=== PATIENT | male | born 1955 | race Two or more races ===

== ENCOUNTER 2019-05-19 21:20 | Emergency (ER) | payer MEDICAID, OTHER ==
[~2019-05-19] VITALS: Ht 188 cm; Wt 104.3 kg
--- NOTE | 2019-05-19 22:11 | NUR ---
PATIENT STATES "I DO NOT WANT BLOOD WORK, I JUST WANT TO REFILL MY PRESCRIPTIONS".
[2019-05-19 23:20] LABS: APPEARANCE,URINE Clear (CLEAR); BILIRUBIN,URINE Negative (NEGATIVE); BLOOD, URINE Negative Ery/uL (NEGATIVE); COLOR,URINE Yellow (YELLOW); KETONES,URINE Negative (NEGATIVE); LEUKOCYTE ESTERASE ,URINE Negative (NEGATIVE); NITRITE, URINE Negative (NEGATIVE); PROTEIN,URINE Negative (NEGATIVE); UGLUCOSE Negative (NEGATIVE); UROBILINOGEN,URINE 0.2 EU/dL (0.2)
[2019-05-19 23:22] LABS: BASOPHILS % (AUTO) 0.3 % (0.0-2.0); EOSINOPHILS % (AUTO) 1.1 % (0.0-6.0); HEMATOCRIT 52 % (39-51); HEMOGLOBIN 17.7 g/dL (13.5-17.5); LYMPHOCYTES # (AUTO) 0.8 /CMM (0.8-4.8); LYMPHOCYTES % (AUTO) 7.7 % (20.0-44.0); MEAN CORPUSCULAR HGB CONC 34 g/dl (31.0-36.0); MEAN CORPUSCULAR VOLUME 95 fL (80-96); MONOCYTES # (AUTO) 0.9 /CMM (0.1-1.30); MONOCYTES % (AUTO) 8.5 % (2.0-12.0); NEUTROPHILS # (AUTO) 8.6 /CMM (1.8-8.9); NEUTROPHILS % (AUTO) 82.4 % (43.0-81.0); PLATELET COUNT (AUTO) 179 /CMM (150-450); RED BLOOD CELL COUNT(AUTO) 5.46 MIL/uL (4.5-6.0); WHITE BLOOD COUNT (AUTO) 10.5 K/uL (4.3-11.0)
[2019-05-19 23:37] LABS: CALCIUM, SERUM 9.1 mg/dL (8.5-10.1); POTASSIUM 3.9 mmol/L (3.5-5.1)
[2019-05-19 23:43] LABS: ALBUMIN 3.7 g/dL (3.4-5.0); BILIRUBIN,DIRECT 0.2 mg/dL (0.0-0.2); BILIRUBIN,TOTAL 0.7 mg/dL (0.2-1.0); TOTAL PROTEIN, SERUM 7.1 g/dL (6.4-8.2)
[2019-05-20] MEDS ORDERED: CIPROFLOXACIN HCL 500 MG TABLET ONE (00:58)
[2019-05-20] MEDS ORDERED: METRONIDAZOLE 500 MG TABLET ONE (00:58)
--- NOTE | 2019-05-20 01:03 | NUR ---
Patient discharged to home in stable condition. Written and verbal after care instructions given. Patient verbalizes understanding of instruction. ambulatory with a steady gait noted. pt aaox4 no acute distress noted, resp even and unlabored.
[2019-05-20 01:04] VITALS: BP 152/79
[2019-05-20] MEDS ORDERED: METRONIDAZOLE 500 MG TABLET PO ONE (01:30)
[2019-05-20] MEDS ORDERED: CIPROFLOXACIN HCL 250 MG TABLET PO ONE (01:30)
== END 2019-05-20 01:05 | disposition home or self-care (01) ==
LOC: ER 21:23
DX: K57.32 Diverticulitis of large intestine without perforation or abscess without bleeding (principal); Z88.2 Allergy status to sulfonamides
CPT/HCPCS: 36415; 80048-TC; 80076-TC; 81000-TC; 83690-TC; 85025-TC

== ENCOUNTER 2019-11-08 16:06 | Inpatient (IN) | payer MEDICAID, SELFPAY ==
[~2019-11-08] VITALS: Ht 188 cm; Wt 102.5 kg
[2019-11-08] MEDS ORDERED: IV NS 0.9% 500 ML IV ONE (16:30)
[2019-11-08] MEDS ORDERED: ACETAMINOPHEN ES 500 MG TABLET PO ONE (16:30)
[2019-11-08 16:48] LABS: BASOPHILS % (AUTO) 0.4 % (0.0-2.0); EOSINOPHILS % (AUTO) 0.5 % (0.0-6.0); HEMATOCRIT 49 % (39-51); HEMOGLOBIN 16.4 g/dL (13.5-17.5); LYMPHOCYTES # (AUTO) 0.8 /CMM (0.8-4.8); LYMPHOCYTES % (AUTO) 11.1 % (20.0-44.0); MEAN CORPUSCULAR HGB CONC 34 g/dl (31.0-36.0); MEAN CORPUSCULAR VOLUME 96 fL (80-96); MONOCYTES # (AUTO) 0.8 /CMM (0.1-1.30); MONOCYTES % (AUTO) 10.2 % (2.0-12.0); NEUTROPHILS # (AUTO) 5.8 /CMM (1.8-8.9); NEUTROPHILS % (AUTO) 77.8 % (43.0-81.0); PLATELET COUNT (AUTO) 207 /CMM (150-450); RED BLOOD CELL COUNT(AUTO) 5.05 MIL/uL (4.5-6.0); WHITE BLOOD COUNT (AUTO) 7.5 K/uL (4.3-11.0)
[2019-11-08] MEDS ORDERED: ACETAMINOPHEN ES 500 MG TABLET ONE (16:48)
[2019-11-08 16:55] LABS: CALCIUM, SERUM 9.3 mg/dL (8.5-10.1); CREATININE 1.2 mg/dL (0.6-1.3); POTASSIUM 3.6 mmol/L (3.5-5.1)
[2019-11-08 17:00] LABS: ALBUMIN 3.6 g/dL (3.4-5.0); BILIRUBIN,TOTAL 1.1 mg/dL (0.2-1.0)
--- NOTE | 2019-11-08 17:00 | NUR ---
"Started having fever last monday COVID PCR test negative fever persist have GOMEZ, bodyaches". PT AAOX4, VSS. RR EVEN & UNLABORED. DENIES CP, SOB, DIZZINESS, N/V AT THIS TIME. PT SEEN & EVAL'D BY DR. CARDOSO. MEDICATED ORDERED, PT RENU WELL. WILL CONT TO MONITOR.
[2019-11-08] MEDS ORDERED: SIMV-46 PO (18:52)
[2019-11-08] MEDS ORDERED: WARF7.5T49 PO (18:52)
--- NOTE | 2019-11-08 19:30 | NUR ---
PT RESTING, DENIES CP, SOB, DIZZINESS, N/V, WEAKNESS AT THIS TIME. WILL CONT TO MONITOR.
[2019-11-08] MEDS ORDERED: IV NS 0.9% 250 ML IV ONE (19:49)
[2019-11-08] MEDS ORDERED: IOHEXOL-350 100 ML VIAL IV ONE (19:49)
[2019-11-08] MEDS ORDERED: CT SWABBABLE VALVE TRANS SET 1 EA INFUS.SET MC ONE (19:49)
[2019-11-08] MEDS ORDERED: IV NS 0.9% 500 ML BAG IV ONE (20:00)
[2019-11-08] MEDS ORDERED: ONDANSETRON HCL/PF 4 MG/2 ML VIAL IVP PRN (20:30)
[2019-11-08] MEDS ORDERED: MORPHINE SULFATE INJ 2 MG/ML DISP.SYRIN IV PRN (20:30)
[2019-11-08] MEDS ORDERED: MAGNESIUM HYDROXIDE 30 ML UDC PO PRN (20:30)
[2019-11-08] MEDS ORDERED: MAG HYDROX/AL HYDROX/SIMETH 30 ML UDC PO PRN (20:30)
[2019-11-08] MEDS ORDERED: HYDROCODONE/APAP 5/325MG TABLET PO PRN (20:30)
--- NOTE | 2019-11-08 21:26 | NUR ---
TELE 321-4
--- NOTE | 2019-11-08 22:44 | NUR ---
REPORT GIVN TO HAZEL TOBIAS FOR MELIZA.
[2019-11-08 23:20] VITALS: BP 156/96
[2019-11-09] MEDS: IV 1/2NS 1000 ML 1,000 ML IV PRN ×2 (00:03→20:50)
--- NOTE | 2019-11-09 00:05 | NUR ---
MS/TELE/RN RECEIVED PATIENT FROM [facility] VIA [facility] AT AROUND 2320. PATIENT WAS AWAKE, ALERT, ORIENTED, COMFORTABLE, NO C/O PAIN, NO DISTRESS NOTED, ADMISSION DONE PER PROTOCOL. PER PATIENT HE HAS NO SKIN PROBLEM AND REFUSED SKIN ASSESSMENT. PLAN OF CARE DISCUSSED, VERBALIZED UNDERSTANDING AND AGREEMENT, TAUGHT THE USE OF CALL LIGHT AND PLACED IT AT BEDSIDE WITHIN REACH. WILL MONITOR.
[2019-11-09 00:07] LABS: BILIRUBIN,DIRECT 0.3 mg/dL (0.0-0.2)
--- NOTE | 2019-11-09 02:16 | NUR ---
MS/TELE/RN PATIENT IS SLEEPING AT THIS TIME, APPEAR COMFORTABLE, NO SIGNS OF DISTRESS NOTED, CALL LIGHT IN REACH, WILL CONTINUE TO MONITOR.
[2019-11-09 04:00] VITALS: BP 150/94
[2019-11-09] MEDS ORDERED: ACETAMINOPHEN ES 500 MG TABLET PO ONE (04:00)
--- NOTE | 2019-11-09 05:07 | NUR ---
MS/TELE/RN TEMP 102.7, COOLING MEASURES INITIATED, GUERLINE UNGER NP, MADE AWARE, RECEIVED ORDERS FOR BLOOD CULTURE X 2 AND TYLENOL 1GM PO X1 AND URINE CULTURE, ORDERS WERE CARRIED OUT, URINE WAS COLLECTED, MED WAS GIVEN. BARREL RIFLER BUTTON MADE AWARE OF THE TEMP AND PENDING COVID 19 PCR TEST PENDING RESULT, CHARGE NURSE MADE AWARE. CHARGE NURSE SPOKE TO BARREL RIFLER BUTTON. WILL KEEP THE PATIENT IN [facility].
[2019-11-09 07:39] LABS: BASOPHILS % (AUTO) 0.4 % (0.0-2.0); EOSINOPHILS % (AUTO) 0.2 % (0.0-6.0); HEMATOCRIT 46 % (39-51); HEMOGLOBIN 15.6 g/dL (13.5-17.5); LYMPHOCYTES % (AUTO) 15.3 % (20.0-44.0); MEAN CORPUSCULAR HGB CONC 34 g/dl (31.0-36.0); MEAN CORPUSCULAR VOLUME 96 fL (80-96); MONOCYTES # (AUTO) 0.8 /CMM (0.1-1.30); MONOCYTES % (AUTO) 11.7 % (2.0-12.0); NEUTROPHILS # (AUTO) 4.8 /CMM (1.8-8.9); NEUTROPHILS % (AUTO) 72.4 % (43.0-81.0); PLATELET COUNT (AUTO) 187 /CMM (150-450); RED BLOOD CELL COUNT(AUTO) 4.79 MIL/uL (4.5-6.0); WHITE BLOOD COUNT (AUTO) 6.6 K/uL (4.3-11.0)
--- NOTE | 2019-11-09 07:51 | NUR ---
PATIENT REFUSING MRI SINCE YESTERDAY.NURSE IS AWARE.
[2019-11-09 08:00] VITALS: BP 124/75
[2019-11-09 08:03] LABS: ALBUMIN 3.4 g/dL (3.4-5.0); BILIRUBIN,TOTAL 1.1 mg/dL (0.2-1.0); CALCIUM, SERUM 8.8 mg/dL (8.5-10.1); MAGNESIUM 2.1 mg/dL (1.8-2.4); PHOSPHORUS 2.8 mg/dL (2.5-4.9); POTASSIUM 3.6 mmol/L (3.5-5.1)
[2019-11-09 08:12] LABS: THYROID STIMULATING HORMONE 3.063 uIU/mL (0.358-3.74)
--- NOTE | 2019-11-09 09:22 | NUR ---
FISH TRAPPER OPENING NOTES Patient received alert and oriented x4. Respiration is even and easy with no shortness of breath. Temperature taken at 0700, with result of 99.0. Will continue to monitor. Independent with bowel and bladder habits. No complain of pain or discomfort at this time. Will keep safe and comfortable. IV site on Left AC, intact and infusing well. Addendum: 11/09/19 at 0935 by CAMDEN ENRIQUEZ RN Above documentation obtained during report [id number]
[2019-11-09] MEDS: ACETAMINOPHEN 325 MG TABLET PO PRN ×2 (10:52→16:35)
[2019-11-09 11:31] LABS: APPEARANCE,URINE CLEAR (CLEAR); BILIRUBIN,URINE NEGATIVE (NEGATIVE); BLOOD, URINE NEGATIVE Ery/uL (NEGATIVE); COLOR,URINE YELLOW (YELLOW); KETONES,URINE NEGATIVE (NEGATIVE); LEUKOCYTE ESTERASE ,URINE NEGATIVE (NEGATIVE); NITRITE, URINE NEGATIVE (NEGATIVE); PROTEIN,URINE NEGATIVE (NEGATIVE); UGLUCOSE NEGATIVE (NEGATIVE)
[2019-11-09 11:36] LABS: FERRITIN 546 ng/mL (8-388)
[2019-11-09 11:51] LABS: C-REACTIVE PROTEIN < 0.2 mg/dL (0.0-0.9)
--- NOTE | 2019-11-09 13:13 | NUR ---
CAPSULE FILLER NOTES Pt remains alert and verbally responsive. Pt complained of generalized warm sensation. Temp taken with result of 100.6, Addendum: 11/09/19 at 1317 by CAMDEN ENRIQUEZ RN Offered cooling measures. Pt declined to have ice packs, but was able to apply cool towels. Will continue to monitor for the rest of shift.
--- NOTE | 2019-11-09 15:56 | NUR ---
LAUNDRY AGENT NOTES MD with orders to continue coumadin 7.5 mg qd at 5pm. Pt made aware and stated he takes his coumadin daily in the AM. MD made aware and agreed.
[2019-11-09 16:00] VITALS: BP 122/62
[2019-11-09] MEDS ORDERED: WARFARIN SODIUM 2.5 MG TABLET PO SCH (17:00)
[2019-11-09] MEDS: SIMVASTATIN 20 MG TABLET PO SCH (18:06)
--- NOTE | 2019-11-09 18:17 | NUR ---
RN MED/SURG CLOSING NOTES Pt remains alert / oriented x 4. Respiration is even and easy with no shortness of breath. With episodes of fever during the shift. Tylenol 650mg given at 1630. Cooling measures provided. Declined to have ice packs in place, but ok to have cool towels. pt in stable condition at this time. Addendum: 11/09/19 at 183 by CAMDEN ENRIQUEZ RN Temp. taken at 183, with result of 99.6
[2019-11-09 20:00] VITALS: BP 133/79
--- NOTE | 2019-11-09 20:38 | NUR ---
MS/TELE/RN ON INITIAL ROUNDING AT 1930, RECEIVED PATIENT ON BED AWAKE, ALERT, ORIENTED, COMFORTABLE, NO C/O PAIN, NO DISTRESS NOTED, CALL LIGHT IN REACH. WILL MONITOR.
[2019-11-10] MEDS: ACETAMINOPHEN 325 MG TABLET PO PRN ×2 (00:27→11:18)
--- NOTE | 2019-11-10 00:34 | NUR ---
MS/TELE/RN TEMP 100.9. TYLENOL 650 MG PO WAS GIVEN ORDERED. PATIENT REFUSED COOLING MEASURES. WILL CONTINUE TO MONITOR.
--- NOTE | 2019-11-10 05:02 | NUR ---
MS/TELE/RN TEMP 98.9 AT THIS TIME, WILL CONTINUE TO MONITOR.
--- NOTE | 2019-11-10 06:10 | NUR ---
MS/TELE/RN PATIENT IS SLEEPING AT THIS TIME, APPEAR COMFORTABLE, NO SIGNS OF DISTRESS NOTED, CALL LIGHT IN REACH, ALL NEEDS ATTENDED AT THIS TIME, WILL CONTINUE TO MONITOR.
[2019-11-10 06:36] LABS: BASOPHILS # (AUTO) 0.1 /CMM (0.0-0.2); BASOPHILS % (AUTO) 0.8 % (0.0-2.0); EOSINOPHILS % (AUTO) 0.5 % (0.0-6.0); HEMATOCRIT 45 % (39-51); HEMOGLOBIN 15.3 g/dL (13.5-17.5); LYMPHOCYTES # (AUTO) 1.2 /CMM (0.8-4.8); LYMPHOCYTES % (AUTO) 17.7 % (20.0-44.0); MEAN CORPUSCULAR HGB CONC 34 g/dl (31.0-36.0); MEAN CORPUSCULAR VOLUME 96 fL (80-96); MONOCYTES # (AUTO) 0.7 /CMM (0.1-1.30); MONOCYTES % (AUTO) 9.5 % (2.0-12.0); NEUTROPHILS # (AUTO) 4.9 /CMM (1.8-8.9); NEUTROPHILS % (AUTO) 71.5 % (43.0-81.0); PLATELET COUNT (AUTO) 185 /CMM (150-450); RED BLOOD CELL COUNT(AUTO) 4.69 MIL/uL (4.5-6.0); WHITE BLOOD COUNT (AUTO) 6.8 K/uL (4.3-11.0)
[2019-11-10 07:19] LABS: CALCIUM, SERUM 8.9 mg/dL (8.5-10.1); CREATININE 1.2 mg/dL (0.6-1.3); MAGNESIUM 2.1 mg/dL (1.8-2.4); PHOSPHORUS 3.2 mg/dL (2.5-4.9); POTASSIUM 4.1 mmol/L (3.5-5.1)
--- NOTE | 2019-11-10 07:27 | NUR ---
MS RN NOTES RECEIVED PT IN BED, AWAKE, A/O X4. PT TOLERATING RA, WITH NO ACUTE RESPIRATORY DISTRESS NOTED. PT DENIES ANY PAIN AT THIS TIME. PT CONCERNED ABOUT THE CAUSE OF FLUCTUATING FEVER, AND WANTED TO KNOW ABOUT ANTIBIOTICS-RN TO F/U WITH HOSPITALIST. IVF 1/2 NS AT 75ML/HR TO LACG20, INTACT AND FLUID INFUSING WELL. PT KEPT COMFORTABLE. CALL LIGHT KEPT WITHIN REACH. PT'S BED IN LOWEST, LOCKED POSITION WITH SR X3. WILL CONTINUE PLAN OF CARE.
[2019-11-10 08:00] VITALS: BP 147/90
[2019-11-10] MEDS ORDERED: WARFARIN SODIUM 2.5 MG TABLET PO SCH ×2 (09:00→17:00)
--- NOTE | 2019-11-10 09:38 | NUR ---
MS RN NOTES VERIFIED PHARMACY, SPOKE TO MAURO. PT NEEDS PT/INR FOR PT EVERYDAY BEFORE GIVING COUMADIN- WILL NOTIFY HOSPITALIST/LW. ALSO, PER PT HE ALWAYS TAKES COUMADIN EVERY MORNING FOR 20 YEARS AT 7AM AND IN AN EMPTY STOMACH. INFORMED PHARMACY. WILL CONTINUE TO MONITOR.
[2019-11-10] MEDS: IV 1/2NS 1000 ML 1,000 ML IV PRN (10:28)
[2019-11-10] MEDS: WARFARIN SODIUM 2.5 MG TABLET PO SCH (11:12)
[2019-11-10 16:00] VITALS: BP 140/89
[2019-11-10] MEDS: SIMVASTATIN 20 MG TABLET PO SCH (17:28)
--- NOTE | 2019-11-10 19:14 | NUR ---
MS RN NOTES PT REMAINS IN BED, AWAKE, A/O X4. PT TOLERATING RA, WITH NO ACUTE RESPIRATORY DISTRESS NOTED. PT DENIES ANY PAIN AT THIS TIME. IVF 1/2 NS AT 75ML/HR TO L HAND G18, INTACT AND FLUID INFUSING WELL. PT KEPT COMFORTABLE. ALL NEEDS AND CARE ATTENDED. CALL LIGHT KEPT WITHIN REACH. PT'S BED IN LOWEST, LOCKED POSITION WITH SR X3. WILL ENDORSE TO INCOMING NIGHT NURSE FOR MELIZA.
--- NOTE | 2019-11-10 19:46 | NUR ---
MS RN OPENING NOTES PATIENT RECEIVED RESTING IN BED, A/O X 4. STABLE ON RA WITH BREATHING EVEN AND UNLABORED, NO SOB NOTED. NO SIGNS OF ACUTE DISTRESS. NO COMPLAINTS OF PAIN OR DISCOMFORT AT THE MOMENT. IV LOCATED ON L HAND #20 RUNNING NS @ 75 ML/HR. SAFETY PRECAUTIONS IN PLACE WITH BED IN LOWEST POSITION, CALL LIGHT WITHIN REACH, BREAKS ON, SIDE RAILS UP. WILL CONTINUE TO MONITOR THROUGHOUT THE NIGHT .
[2019-11-10 20:00] VITALS: BP 140/89
[2019-11-11] MEDS: ACETAMINOPHEN 325 MG TABLET PO PRN (02:32)
--- NOTE | 2019-11-11 02:38 | NUR ---
RN NOTES PATIENT TEMPERATURE 99.7, PRN TYLENOL 650 MG ADMINISTERED.
--- NOTE | 2019-11-11 05:50 | NUR ---
MS RN NOTES PATIENT COMPLAINING OF IV SITE FOR TENDERNESS. IV SITE REMOVED. OFFERED TO PUT NEW IV SITE BUT PATIENT REFUSED. EDUCATED PURPOSE OF THE IV AND FOR FLUIDS, BUT PATIENT STILL REFUSED HE STATED "HE DRINKS ENOUGH WATER". WILL BE OPEN TO IV WHEN IV MEDICATIONS ARE NEEDED.
--- NOTE | 2019-11-11 06:47 | NUR ---
MS RN CLOSING NOTES PATIENT RESTING IN BED, A/O X 4. STABLE ON RA WITH BREATHING EVEN AND UNLABORED, NO SOB NOTED. NO SIGNS OF ACUTE DISTRESS. NO COMPLAINTS OF PAIN OR DISCOMFORT AT THE MOMENT. PATIENT REFUSED IV ACCESS AT THE MOMENT. SAFETY PRECAUTIONS IN PLACE WITH BED IN LOWEST POSITION, CALL LIGHT WITHIN REACH, BREAKS ON, SIDE RAILS UP. ALL NEEDS ATTENDED TO. WILL ENDORSE TO ONCOMING SHIFT ABOUT MELIZA.
[2019-11-11 07:09] LABS: HEMATOCRIT 46 % (39-51); HEMOGLOBIN 15.8 g/dL (13.5-17.5); MEAN CORPUSCULAR HGB CONC 34 g/dl (31.0-36.0); MEAN CORPUSCULAR VOLUME 96 fL (80-96); PLATELET COUNT (AUTO) 190 /CMM (150-450); RED BLOOD CELL COUNT(AUTO) 4.79 MIL/uL (4.5-6.0); WHITE BLOOD COUNT (AUTO) 5.9 K/uL (4.3-11.0)
[2019-11-11 07:37] LABS: NEUTROPHILS % (AUTO) 71.4 % (43.0-81.0)
[2019-11-11 07:38] LABS: MONOCYTES % (AUTO) 11.9 % (2.0-12.0)
[2019-11-11 07:39] LABS: BASOPHILS % (AUTO) 0.1 % (0.0-2.0); EOSINOPHILS % (AUTO) 0.6 % (0.0-6.0)
[2019-11-11 07:40] LABS: LYMPHOCYTES # (AUTO) 0.9 /CMM (0.8-4.8); NEUTROPHILS # (AUTO) 4.2 /CMM (1.8-8.9)
[2019-11-11 07:41] LABS: CALCIUM, SERUM 9.3 mg/dL (8.5-10.1); CREATININE 1.1 mg/dL (0.6-1.3); MAGNESIUM 2.1 mg/dL (1.8-2.4); MONOCYTES # (AUTO) 0.7 /CMM (0.1-1.30); PHOSPHORUS 3.2 mg/dL (2.5-4.9); POTASSIUM 3.9 mmol/L (3.5-5.1)
[2019-11-11 08:00] VITALS: BP 144/89
--- NOTE | 2019-11-11 08:00 | NUR ---
m/s regional engineer: initial assessment received pt in bed awake, a/ox4. no c/o pain or any discomfort. afebrile. no distress noted. still refusing iv insertion at this time. awaiting for md. will continue to monitor.
[2019-11-11] MEDS: WARFARIN SODIUM 2.5 MG TABLET PO SCH (08:43)
--- NOTE | 2019-11-11 09:20 | NUR ---
m/s marketing and outreach coordinator: notes received order from dominic woo ([facility]) to keep pt npo. pt made aware, updated plan of care and answered all questions. grill chef to see pt today and pt made aware. pt agree for iv insertion only if needed as stated. Addendum: 11/11/19 at 0927 by ORESTES PACHECO SERVICE CONTROL OPERATOR pt already had breakfast this morning. snacks and juices removed, pt verbalized understanding.
--- NOTE | 2019-11-11 10:50 | NUR ---
m/s nuclear physicist: md visit seen and examined by dominic woo ([facility]) with verbal order to hold coumadin and start lovenox per pharmacy dose tomorrow. orders read back and carried out. also pt agree for iv insertion.
[2019-11-11] MEDS: IV D5/0.45 NACL 1,000 ML IV PRN ×2 (11:56→22:10)
[2019-11-11] MEDS ORDERED: ENOXAPARIN SODIUM 100 MG/ML DISP.SYRIN SQ SCH (12:00)
--- NOTE | 2019-11-11 12:00 | NUR ---
m/s wet process technician: notes resting comfortable in bed. remains npo. iv fluids infusing well. no distress noted. will continue to monitor.
[2019-11-11 13:07] LABS: HIV SCRN 4G wRFX Non Reactive (Non Reactive)
--- NOTE | 2019-11-11 15:00 | NUR ---
m/s rehab spec: notes pt remains npo, iv fluids infusing well. no distress noted. will continue to monitor.
[2019-11-11] MEDS ORDERED: ACETAMINOPHEN 650 MG/SUPP.RECT RC PRN (17:00)
--- NOTE | 2019-11-11 17:00 | NUR ---
m/s restaurant shift leader: notes resting comfortable. no distress noted. instructed to call for assistance.
[2019-11-11] MEDS: SIMVASTATIN 20 MG TABLET PO SCH (17:37)
[2019-11-11 17:52] VITALS: BP 138/92
--- NOTE | 2019-11-11 19:00 | NUR ---
m/s track subway repair supervisor: notes report given to aidan (daxa) for continuity of care.
--- NOTE | 2019-11-11 19:05 | NUR ---
MS/RN OPENING NOTES: PATIENT RECEIVED RESTING IN BED, A/O X 4. VERBALLY RESPONSIVE AND ABLE TO MAKE NEEDS KNOWN. STABLE ON RA WITH BREATHING EVEN AND UNLABORED, NO SOB NOTED. NO SIGNS OF ACUTE DISTRESS. NO COMPLAINTS OF PAIN OR DISCOMFORT AT THE MOMENT. IV LOCATED ON L FA #20 RUNNING D5 1/2 NS @ 100 MLS/HR. SAFETY PRECAUTIONS IN PLACE WITH BED IN LOWEST POSITION, CALL LIGHT WITHIN REACH, BREAKS ON, SIDE RAILS UP. WILL CONTINUE TO MONITOR THROUGHOUT THE SHIFT.
[2019-11-11 20:00] VITALS: BP 128/88
[2019-11-11] MEDS: ENOXAPARIN SODIUM 100 MG/ML DISP.SYRIN SQ SCH (20:27)
--- NOTE | 2019-11-12 06:50 | NUR ---
MS/RN NOTES: LATEST TEMP IS 98.8, ORALLY. NO FEVER THROUGHOUT THE SHIFT.
[2019-11-12 07:24] LABS: BASOPHILS % (AUTO) 0.6 % (0.0-2.0); EOSINOPHILS % (AUTO) 1.2 % (0.0-6.0); HEMATOCRIT 45 % (39-51); HEMOGLOBIN 15.3 g/dL (13.5-17.5); LYMPHOCYTES % (AUTO) 23.2 % (20.0-44.0); MEAN CORPUSCULAR HGB CONC 34 g/dl (31.0-36.0); MEAN CORPUSCULAR VOLUME 95 fL (80-96); MONOCYTES # (AUTO) 0.6 /CMM (0.1-1.30); MONOCYTES % (AUTO) 14.4 % (2.0-12.0); NEUTROPHILS # (AUTO) 2.6 /CMM (1.8-8.9); NEUTROPHILS % (AUTO) 60.6 % (43.0-81.0); PLATELET COUNT (AUTO) 197 /CMM (150-450); RED BLOOD CELL COUNT(AUTO) 4.73 MIL/uL (4.5-6.0); WHITE BLOOD COUNT (AUTO) 4.3 K/uL (4.3-11.0)
--- NOTE | 2019-11-12 07:48 | NUR ---
MS/RN CLOSING NOTES: PATIENT REMAINS RESTING IN BED, A/O X 4. NO SIGNIFICANT CHANGES IN CONDITION. STABLE ON RA WITH BREATHING EVEN AND UNLABORED, NO SOB NOTED. NO SIGNS OF ACUTE DISTRESS. NO COMPLAINTS OF PAIN OR DISCOMFORT AT THE MOMENT. IV LOCATED ON L FA #20 RUNNING D5 1/2 NS @ 100 MLS/HR. SAFETY PRECAUTIONS IN PLACE WITH BED IN LOWEST POSITION, CALL LIGHT WITHIN REACH, BREAKS ON, SIDE RAILS UP. KEPT NPO THROUGHOUT THE SHIFT. ENDORSED TO HAZEL GARCIA FOR MELIZA.
[2019-11-12 08:00] VITALS: BP 131/80
--- NOTE | 2019-11-12 08:00 | NUR ---
MS RN NOTES PATIENT IN BED RESTING. ALERT, ORIENTED X3. NO SOB OR ACUTE DISTRESS NOTED. BED IN LOW LOCKED POSITION. PERIPHERAL IV INTACT PATENT. WILL CONTINUE TO MONITOR.
[2019-11-12 08:57] LABS: CREATININE 1.1 mg/dL (0.6-1.3); MAGNESIUM 2.1 mg/dL (1.8-2.4); PHOSPHORUS 3.2 mg/dL (2.5-4.9); POTASSIUM 3.9 mmol/L (3.5-5.1)
[2019-11-12] MEDS: ENOXAPARIN SODIUM 100 MG/ML DISP.SYRIN SQ SCH (09:11)
[2019-11-12] MEDS: IV D5/0.45 NACL 1,000 ML IV PRN ×2 (09:34→19:42)
--- NOTE | 2019-11-12 13:35 | NUR ---
MS RN NOTES PATIENT SEEN BY SATNAM BABB NP ORDERS TO START PATIENT ON CLEAR LIQUIDS DIET AND IF TOLERATING START REGULAR DIET. WILL CONTINUE TO MONITOR
[2019-11-12 16:00] VITALS: BP 133/80
[2019-11-12] MEDS ORDERED: WARFARIN SODIUM 5 MG TABLET PO SCH (17:00)
--- NOTE | 2019-11-12 17:23 | NUR ---
MS RN NOTES PER SATNAM FREIRE D/C LOVENOX AND CONTINUE COUMADIN HE WAS TAKING AT HOME.
[2019-11-12] MEDS: SIMVASTATIN 20 MG TABLET PO SCH (17:42)
--- NOTE | 2019-11-12 18:45 | NUR ---
MS RN NOTES PATIENT IN BED RESTING NO SOB OR ACUTE DISTRESS NOTED. PATIENT TOLERATED DIET. DENIES ANY PAIN OR DISCOMFORT. ALL DUE MEDICATIONS ADMINISTERED. ALL NEEDS MET. WILL ENDORSE CARE TO PM SHIFT.
[2019-11-12 20:00] VITALS: BP 125/75
--- NOTE | 2019-11-12 20:44 | NUR ---
MS/TELE/RN AT INITIAL ROUNDING AT 1930, PATIENT WAS LYING ON BED AWAKE, ALERT, ORIENTED, VERBALIZED THAT HE FEELS SO MUCH BETTER, NO C/O PAIN, NO DISTRESS NOTED, CALL LIGHT IN REACH.WITHIN REACH, WILL MONITOR.
--- NOTE | 2019-11-12 22:00 | NUR ---
MS/TELE/RN PATIENT IS SLEEPING, APPEAR COMFORTABLE, NO SIGNS OF DISTRESS NOTED, CALL LIGHT IN REACH. WILL CONTINUE TO MONITOR.
[2019-11-13] MEDS: IV D5/0.45 NACL 1,000 ML IV PRN (06:01)
--- NOTE | 2019-11-13 06:29 | NUR ---
MS/TELE/RN PATIENT IS AWAKE, COMFORTABLE NO SIGNS OF DISTRESS NOTED, CALL LIGHT IN REACH. REDDENED IV SITE NOTED, OFFERED TO CHANGE IV LINE, BUT REFUSED. ALL NEEDS ATTENDED AT THIS TIME, WILL CONTINUE TO MONITOR.
[2019-11-13 06:35] LABS: BASOPHILS % (AUTO) 0.1 % (0.0-2.0); EOSINOPHILS % (AUTO) 1.6 % (0.0-6.0); HEMATOCRIT 43 % (39-51); HEMOGLOBIN 14.6 g/dL (13.5-17.5); LYMPHOCYTES # (AUTO) 0.9 /CMM (0.8-4.8); LYMPHOCYTES % (AUTO) 21.9 % (20.0-44.0); MEAN CORPUSCULAR HGB CONC 35 g/dl (31.0-36.0); MEAN CORPUSCULAR VOLUME 95 fL (80-96); MONOCYTES # (AUTO) 0.6 /CMM (0.1-1.30); MONOCYTES % (AUTO) 14.9 % (2.0-12.0); NEUTROPHILS # (AUTO) 2.6 /CMM (1.8-8.9); NEUTROPHILS % (AUTO) 61.5 % (43.0-81.0); PLATELET COUNT (AUTO) 193 /CMM (150-450); RED BLOOD CELL COUNT(AUTO) 4.47 MIL/uL (4.5-6.0); WHITE BLOOD COUNT (AUTO) 4.2 K/uL (4.3-11.0)
[2019-11-13 06:45] LABS: CALCIUM, SERUM 8.8 mg/dL (8.5-10.1); CREATININE 0.9 mg/dL (0.6-1.3)
--- NOTE | 2019-11-13 07:18 | NUR ---
MS RN NOTES PATIENT IN BED ALERT ORIENTED X 4. NO ACUTE DISTRESS NOTED. BREATHING UNLABORED. NO SOB NOTED. DENIED PAIN AT THIS TIME. IV ACCESS PATENT AND INTACT, NO REDNESS, NO SWELLING NOTED. SAFETY MEASURES IN PLACE. CALL LIGHT WITHIN REACH. WILL CONTINUE TO MONITOR ACCORDINGLY.
[2019-11-13 08:00] VITALS: BP 144/91
--- NOTE | 2019-11-13 11:45 | NUR ---
MS RN NOTES PATIENT SEEN AND EVALUATED BY FLAT SORTER PROCESSOR SATNAM FREIRE WITH NEW ORDERS MADE, NOTED AND CARRIED OUT.
--- NOTE | 2019-11-13 15:45 | NUR ---
MS RECEIVING TELLER NOTES PATIENT DISCHARGE HOME WITH STABLE VITAL SIGNS, ALERT ORIENTED X 4. NO ACUTE DISTRESS NOTED. BREATHING UNLABORED. NO SOB NOTED. DENIED PAIN AT THIS TIME. IV ACCESS REMOVED, NO BLEEDING , NO REDNESS, NO SWELLING NOTED. DISCHARGE INSTRUCTIONS GIVEN TO THE PATIENT INCLUDING FOLLOW UP WITH PRIMARY DOCTOR AND FOLLOW UP WITH DR EL FISHER NEXT WEEK, VERBALIZED UNDERSTANDING. SKIN IS INTACT. ALL BELONGINGS ACCOUNTED FOR . ASSISTED TO THE LOBBY LEFT VIA PRIVATE CAR IN STABLE CONDITION.
== END 2019-11-13 15:45 | disposition home or self-care (01) | DRG 392 ==
LOC: ER 16:08 → TELE 21:47 → MED 11-09 09:01
PROVIDERS: ADMIT Nurse Practitioner Acute Care; ATTEND Nurse Practitioner Acute Care
DX: A08.4 Viral intestinal infection, unspecified (principal); K57.92 Diverticulitis of intestine, part unspecified, without perforation or abscess without bleeding; E87.2 Acidosis; E87.1 Hypo-osmolality and hyponatremia; D68.69 Other thrombophilia; Z74.09 Other reduced mobility; E66.9 Obesity, unspecified; Z68.29 Body mass index [BMI] 29.0-29.9, adult; E86.9 Volume depletion, unspecified; R51 Headache; Z86.718 Personal history of other venous thrombosis and embolism; R73.9 Hyperglycemia, unspecified; R90.89 Other abnormal findings on diagnostic imaging of central nervous system
CPT/HCPCS: 36415; 70450-TC; 70496-TC; 71045-TC; 80048-TC; 80053-TC; 80061-TC; 81000-TC; 82248-TC; 82728-TC; 83605-TC; 83615-TC; 83690-TC; 83735-TC; 84100-TC; 84443-TC; 85025-TC; 85378-TC; 85610-TC; 85730-TC; 86140-TC; 87040-TC; 87081-TC; 87086-TC; 87899; 93307-TC; C9803-CS; G0378; J1650; J3490; J7040; J7050; Q9967; U0003-CS